=== PATIENT | male | born 1945 | race Hispanic/Latino ===

== ENCOUNTER 2016-11-09 11:08 | Outpatient (CLI) | payer MEDICARE, BC ==
[2016-11-09 16:31] LABS: ALT (SGPT) 17 U/L (8-55); AST (SGOT) 16 U/L (5-34); Albumin 4.1 g/dL (3.4-4.8); Alkaline Phosphatase 55 U/L (40-150); Anion Gap 13 mmol/L (10-20); BUN (Urea Nitrogen) 21 mg/dL (8.4-25.7); Bilirubin, Total 0.6 mg/dL (0.2-1.2); Calc. Creatinine Clearance 0 mL/min (70-130); Calcium 9.7 mg/dL (7.8-10.44); Carbon Dioxide 23 mmol/L (23-31); Cardiac Risk 3.2 (Less than 4.5); Chloride 107 mmol/L (98-107); Cholesterol 154 mg/dl (< 200 Desired); Estimated GFR-MDRD 81; Globulin 2.7 g/dL (2.4-3.5); Glucose 146 mg/dL (83-110); HDL Cholesterol 48 mg/dL (>60 Neg Risk); LDL Cholesterol, Calculated 96 mg/dL; Protein, Total 6.8 g/dL (5.8-8.1); Sodium 138 mmol/L (136-145); Triglycerides 52 mg/dL (Less than 150)
[2016-11-09 16:52] LABS: Hemoglobin A1c 7.2 % (4.0-6.0)
== END 2016-11-09 11:09 | disposition home or self-care (01) ==
LOC: LABLEX 11:08
PROVIDERS: ATTEND Nurse Practitioner
DX: E78.5 Hyperlipidemia, unspecified (principal); E11.9 Type 2 diabetes mellitus without complications
CPT/HCPCS: 80053; 80061; 83036; 84443